=== PATIENT | male | born 1955 | race Caucasian/White ===

== ENCOUNTER 2020-10-25 08:51 | Outpatient (REF) | payer BC, SELFPAY | END 2020-10-25 08:52 | disposition home or self-care (01) | LOC: HO.BBR 08:51 | PROVIDERS: Visit Provider Internal Medicine Hematology & Oncology | DX: R79.89 Other specified abnormal findings of blood chemistry (principal) | CPT/HCPCS: 36415; 85014; 85018; 99195 ==

== ENCOUNTER 2020-11-02 13:02 | Outpatient (REF) | payer BC, SELFPAY | END 2020-11-02 13:03 | disposition home or self-care (01) | LOC: HO.BBR 13:02 | PROVIDERS: Visit Provider Internal Medicine Hematology & Oncology | DX: R79.89 Other specified abnormal findings of blood chemistry (principal) | CPT/HCPCS: 85018; 99195 ==

== ENCOUNTER 2020-11-09 08:54 | Outpatient (REF) | payer BC, SELFPAY | END 2020-11-09 08:55 | disposition home or self-care (01) | LOC: HO.BBR 08:54 | PROVIDERS: Visit Provider Internal Medicine Hematology & Oncology | DX: R79.89 Other specified abnormal findings of blood chemistry (principal) | CPT/HCPCS: 85014; 85018; 99195 ==

== ENCOUNTER 2020-11-16 07:58 | Outpatient (REF) | payer BC, SELFPAY ==
[2020-11-16 09:10] LABS: Ferritin 291 ng/mL (20-250)
== END 2020-11-16 07:59 | disposition home or self-care (01) ==
LOC: HO.BBR 07:58
PROVIDERS: Visit Provider Internal Medicine Hematology & Oncology
DX: R79.89 Other specified abnormal findings of blood chemistry (principal)
CPT/HCPCS: 36415; 82728; 85014; 85018; 99195

== ENCOUNTER 2020-12-02 08:59 | Outpatient (REF) | payer BC, SELFPAY | END 2020-12-02 09:00 | disposition home or self-care (01) | LOC: HO.BBR 08:59 | PROVIDERS: Visit Provider Internal Medicine Hematology & Oncology | DX: R79.89 Other specified abnormal findings of blood chemistry (principal) | CPT/HCPCS: 85014; 85018; 99195 ==

== ENCOUNTER 2020-12-15 09:57 | Outpatient (REF) | payer BC, SELFPAY | END 2020-12-15 09:58 | disposition home or self-care (01) | LOC: HO.BBR 09:57 | PROVIDERS: Visit Provider Internal Medicine Hematology & Oncology | DX: E83.19 Other disorders of iron metabolism (principal) | CPT/HCPCS: 85014; 85018; 99195 ==

== ENCOUNTER 2020-12-29 08:51 | Outpatient (REF) | payer BC, SELFPAY | END 2020-12-29 08:52 | disposition home or self-care (01) | LOC: HO.BBR 08:51 | PROVIDERS: Visit Provider Internal Medicine Hematology & Oncology | DX: R79.89 Other specified abnormal findings of blood chemistry (principal) | CPT/HCPCS: 36415; 85018; 99195 ==

== ENCOUNTER 2021-01-11 08:25 | Outpatient (REF) | payer BC, SELFPAY ==
[2021-01-11 09:59] LABS: Ferritin 87 ng/mL (20-250)
== END 2021-01-11 08:26 | disposition home or self-care (01) ==
LOC: HO.BBR 08:25
PROVIDERS: Visit Provider Internal Medicine Hematology & Oncology
DX: R79.89 Other specified abnormal findings of blood chemistry (principal)
CPT/HCPCS: 36415; 82728; 85018; 99195